=== PATIENT | male | born 1955 | race Hispanic/Latino ===

== ENCOUNTER 2018-09-13 21:24 | Emergency (ER) | payer MEDICARE, OTHER ==
[2018-09-13 21:52] LABS: APPEARANCE,URINE Clear (CLEAR); BILIRUBIN,URINE Negative (NEGATIVE); COLOR,URINE Yellow (YELLOW); GLUCOSE, URINE (UA) Negative (NEGATIVE); KETONES,URINE Trace mg/dL (NEGATIVE); LEUKOCYTE ESTERASE ,URINE Negative (NEGATIVE); NITRATE,URINE Negative (NEGATIVE); OCCULT BLOOD,URINE Small (NEGATIVE); PROTEIN,URINE Trace (NEGATIVE)
[2018-09-13] MEDS ORDERED: SODIUM CHLORIDE 0.9% 1000ML 1,000 ML IV ONE ×2 (22:05→23:30)
[2018-09-13] MEDS ORDERED: KETOROLAC TROMETHAMINE 30MG/ML IV ONE (22:06)
[2018-09-13 22:09] LABS: BASOPHILS % (AUTO) 0.3 % (0.0-5.0); EOSINOPHILS % (AUTO) 0.2 % (0.0-8.0); HEMATOCRIT 41.6 % (42-54); LYMPHOCYTES % (AUTO) 9.5 % (21.0-51.0); MEAN CORPUSCULAR HEMOGLOBIN 33.9 pg (27.0-33.0); MEAN CORPUSCULAR HGB CONC 34.9 g/dL (32.0-36.0); MEAN CORPUSCULAR VOLUME 97.2 fL (79-99); MONOCYTES % (AUTO) 13.2 % (3.0-13.0); NEUTROPHILS % (AUTO) 76.8 % (40.0-77.0); PLATELET COUNT (AUTO) 193 K/uL (130-400); RED BLOOD CELL COUNT(AUTO) 4.28 MIL/uL (4.50-6.20); RED CELL DISTRIBUTION WIDTH 12.9 % (11.0-15.5); WHITE BLOOD COUNT (AUTO) 7.9 K/uL (4.8-10.8)
[2018-09-13 22:16] LABS: CARBON DIOXIDE 29 mmol/L (21-32); CHLORIDE 100 mmol/L (101-111); CREATININE 0.9 mg/dL (0.5-1.5); GLOMERULAR FILTR. RATE CALC 90 mL/min (>60); GLUCOSE,RANDOM 115 mg/dL (70-105); POTASSIUM 3.6 mmol/L (3.5-5.1); SODIUM SERUM 138 mmol/L (136-145); UREA NITROGEN, BLOOD 6 mg/dL (7-18)
[2018-09-13 22:17] LABS: RAPID GROUP A STREP NEGATIVE (NEGATIVE)
[2018-09-13 22:21] LABS: BACTERIA,URINE None Seen /HPF (None Seen); MUCUS,URINE Few LPF (None Seen); RBC,URINE 0-1 /HPF (0-1); SQUAMOUS EPITHELIAL CELL,UR Rare /HPF (0-2); WBC,URINE None Seen /HPF (0-1)
[2018-09-13 22:22] LABS: INR 0.99 (0.85-1.15); PARTIAL THROMBOPLASTIN TIME 28.7 SEC (26.3-35.5); PROTHROMBIN TIME 10.4 SEC (9.6-11.6)
[2018-09-13] MEDS ORDERED: IOHEXOL-350 75 ML VIAL IV ONE (22:26)
[2018-09-13 22:27] LABS: ALANINE AMINOTRANSFERASE 30 U/L (12-78); ALBUMIN 3.4 g/dL (3.5-5.0); ASPARTATE AMINOTRANSFERASE 28 U/L (10-37); BILIRUBIN,TOTAL 0.4 mg/dL (0.2-1.0); CREATINE KINASE, TOTAL 95 U/L (21-232); MYOGLOBIN 23 ng/mL (10-92); TOTAL PROTEIN, SERUM 8.2 g/dL (6.0-8.3); TROPONIN I < 0.04 ng/mL (0.00-0.06)
[2018-09-13] MEDS ORDERED: ACETAMINOPHEN EXTRA STRENGTH 500 MG TABLET PO ONE (22:44)
== END 2018-09-14 00:45 | disposition home or self-care (01) ==
LOC: EDH 21:24
DX: J10.1 Influenza due to other identified influenza virus with other respiratory manifestations (principal); E86.9 Volume depletion, unspecified; M25.512 Pain in left shoulder; M25.511 Pain in right shoulder
CPT/HCPCS: 36415; 71045; 74177; 80053; 81001; 82550; 83605; 83874; 84484; 85025; 85610; 85730; 87040 ×2; 87088; 87804 ×2; 87880; 93005; 96361; 96374; 99284; J1885; J7030 ×2; Q9967

== ENCOUNTER 2018-09-15 16:16 | Inpatient (IN) | payer MEDICARE, OTHER ==
[~2018-09-15] VITALS: Ht 162.6 cm; Wt 112.8 kg
[2018-09-15] MEDS ORDERED: SODIUM CHLORIDE 0.9% 1000ML 3,000 ML IV ONE (16:38)
[2018-09-15] MEDS ORDERED: ACETAMINOPHEN EXTRA STRENGTH 500 MG TABLET ONE ×2 (16:38→19:57)
[2018-09-15 16:42] LABS: BASOPHILS % (AUTO) 0.2 % (0.0-5.0); HEMATOCRIT 38.8 % (42-54); LYMPHOCYTES % (AUTO) 3.3 % (21.0-51.0); MEAN CORPUSCULAR HEMOGLOBIN 33.8 pg (27.0-33.0); MEAN CORPUSCULAR HGB CONC 34.9 g/dL (32.0-36.0); MEAN CORPUSCULAR VOLUME 96.9 fL (79-99); MONOCYTES % (AUTO) 7.6 % (3.0-13.0); NEUTROPHILS % (AUTO) 88.9 % (40.0-77.0); PLATELET COUNT (AUTO) 176 K/uL (130-400); RED CELL DISTRIBUTION WIDTH 13.1 % (11.0-15.5); WHITE BLOOD COUNT (AUTO) 16.7 K/uL (4.8-10.8)
[2018-09-15 16:59] LABS: INR 1.08 (0.85-1.15); PARTIAL THROMBOPLASTIN TIME 32.2 SEC (26.3-35.5); PROTHROMBIN TIME 11.3 SEC (9.6-11.6)
[2018-09-15 17:26] LABS: ALBUMIN 2.7 g/dL (3.5-5.0); BILIRUBIN,TOTAL 0.7 mg/dL (0.2-1.0); CREATININE 1.2 mg/dL (0.5-1.5); TOTAL PROTEIN, SERUM 7.4 g/dL (6.0-8.3); TROPONIN I 0.11 ng/mL (0.00-0.06)
[2018-09-15 17:31] LABS: POTASSIUM 3.3 mmol/L (3.5-5.1)
[2018-09-15 19:01] LABS: APPEARANCE,URINE Cloudy (CLEAR); BILIRUBIN,URINE Small (NEGATIVE); COLOR,URINE Dark Yellow (YELLOW); GLUCOSE, URINE (UA) Negative (NEGATIVE); KETONES,URINE Trace mg/dL (NEGATIVE); LEUKOCYTE ESTERASE ,URINE Negative (NEGATIVE); NITRATE,URINE Negative (NEGATIVE); OCCULT BLOOD,URINE Small (NEGATIVE); PH,URINE 5.5 (5.0-8.0); PROTEIN,URINE POS 2+ (NEGATIVE)
[2018-09-15] MEDS ORDERED: VANCOMYCIN 1GM+NS 250ML 250 ML IV SCH (19:15)
[2018-09-15] MEDS ORDERED: MORPHINE SULFATE 4 MG/1ML SYG IV PRN (19:15)
[2018-09-15 19:24] LABS: BACTERIA,URINE Few /HPF (None Seen); RBC,URINE None Seen /HPF (0-1); SQUAMOUS EPITHELIAL CELL,UR 0-2 /HPF (0-2)
[2018-09-15 19:25] LABS: AMORPHOUS SEDIMENT,UR Few /LPF (None Seen); MUCUS,URINE Few LPF (None Seen)
[2018-09-15] MEDS ORDERED: VANCOMYCIN PROTOCOL PER PHARMACY IV SCH (19:30)
[2018-09-15] MEDS ORDERED: VANCOMYCIN 1GM+NS 250ML 250 ML IV ONE (21:05)
[2018-09-15] MEDS: FAMOTIDINE/PF 20 MG/2 ML VIAL IV SCH (21:33)
[2018-09-15] MEDS: ENOXAPARIN SODIUM 40 MG/0.4 ML SYRINGE SQ SCH (21:33)
[2018-09-15] MEDS: ZOSYN 3.375GM+NS 50ML 50 ML IV SCH (21:33)
[2018-09-15] MEDS: SODIUM CHLORIDE 0.9% 1000ML 1,000 ML IV SCH (21:34)
[2018-09-15 21:53] VITALS: BP 132/66
[2018-09-15] MEDS ORDERED: LIDOCAINE HCL-MPF 1% 2ML VIAL IVP PRN (23:15)
[2018-09-15] MEDS ORDERED: POTASSIUM CHLORIDE 10% ELIXIR 20 MEQ/15 ML UDCUP PO PRN (23:15)
[2018-09-15] MEDS ORDERED: POTASSIUM CHLORIDE 20MEQ/100ML 100 ML IV PRN (23:15)
[2018-09-16] VITALS (17 sets, daily range): BP systolic 118–165; BP diastolic 50–92
[2018-09-16] MEDS: POTASSIUM CHLORIDE 20 MEQ ERTAB PO PRN ×2 (00:05→02:06)
[2018-09-16] MEDS: SODIUM CHLORIDE 0.9% 1000ML 1,000 ML IV SCH (01:57)
[2018-09-16] MEDS: ZOSYN 3.375GM+NS 50ML 50 ML IV SCH ×3 (04:14→20:38)
[2018-09-16] MEDS: ACETAMINOPHEN 325 MG TAB PO PRN (06:05)
[2018-09-16] MEDS ORDERED: COMPOUND IV REFRIGERATED 1 EACH IVSOLN MISC PRN (06:30)
[2018-09-16 06:52] LABS: CREATINE KINASE, TOTAL 136 U/L (21-232); MYOGLOBIN 89 ng/mL (10-92); TROPONIN I < 0.04 ng/mL (0.00-0.06)
[2018-09-16] MEDS: FAMOTIDINE/PF 20 MG/2 ML VIAL IV SCH ×2 (09:05→20:38)
[2018-09-16] MEDS: ENOXAPARIN SODIUM 40 MG/0.4 ML SYRINGE SQ SCH ×2 (09:08→20:40)
[2018-09-16] MEDS: VANCOMYCIN 1.5 GM in SODIUM CHLORIDE 0.9% 250 ML IV SCH ×2 (09:08→20:38)
--- NOTE | 2018-09-16 10:32 | NUR ---
DCP CM met with pt discussed dc plans. Pt is independent, lives at home with spuse. Denies any equipments/services. Pt feels safe to go back home, sees Dr Rashaun Barroso at [facility], still works and drives, friend able to assist with transportation as necessary. DC plan to home once stable. CM to cont to follow up. Addendum: 09/16/18 at 1033 by SANDRITA JOVEL LVN CM Amended: Links added.
--- NOTE | 2018-09-16 12:20 | NUR ---
DR. SHAY HERE AND REVIEW CARE, WITH PT. AND . REGARDING PLAN OF CARE AND LABS VALUES . AND ASSESSMENT. REVIEW HISTORY. WITH ORDERS TO FOLLOW
[2018-09-16] MEDS ORDERED: SODIUM CHLORIDE 0.9% 1000ML 1,000 ML IV SCH (12:21)
--- NOTE | 2018-09-16 12:44 | NUR ---
ONE LITER OF SALINE UP AT A WIDTH OPEN RATE FOR A BOLUS PER . ORDERS CHARGE NURSE ANDRES . PHILL. AWARE OF PT . ORDERS TO TRANSFER TO 2ND FLOOR PCCU FOR CLOSER MONITORING. PT IS ALREADY IN A TELE MONITOR .WITH HEART RATE UP TO THE 120'S .
[2018-09-16 13:18] LABS: HEMATOCRIT 35.1 % (42-54); MEAN CORPUSCULAR HEMOGLOBIN 33.2 pg (27.0-33.0); MEAN CORPUSCULAR HGB CONC 34.1 g/dL (32.0-36.0); MEAN CORPUSCULAR VOLUME 97.4 fL (79-99); NUCLEATED RED BLOOD CELLS 0.1 % (0.0-0.19); PLATELET COUNT (AUTO) 166 K/uL (130-400); RED CELL DISTRIBUTION WIDTH 12.9 % (11.0-15.5); WHITE BLOOD COUNT (AUTO) 19.1 K/uL (4.8-10.8)
[2018-09-16 13:40] LABS: B-TYPE NATRIURETIC PEPTIDE 145 pg/mL (0-100)
[2018-09-16 13:50] LABS: CREATININE 1.1 mg/dL (0.5-1.5); MAGNESIUM 1.5 mg/dL (1.80-2.40); PHOSPHORUS 1.3 mg/dL (2.5-4.9); POTASSIUM 3.6 mmol/L (3.5-5.1); TROPONIN I 0.06 ng/mL (0.00-0.06)
[2018-09-16 13:56] LABS: HEMOGLOBIN A1C 5.6 % (4.0-6.0)
[2018-09-16] MEDS: CLINDAMYCIN 900 MG/D5% WATER 50 ML IV SCH ×2 (14:00→20:38)
[2018-09-16] MEDS ORDERED: POTASSIUM PHOS 15 mMOL+NS250ML 250 ML IV SCH ×2 (14:15→16:00)
[2018-09-16] MEDS ORDERED: MAGNESIUM 2GM PREMIX 50ML 50 ML IV SCH (14:15)
[2018-09-16 14:20] LABS: HEMATOCRIT 36.9 % (42-54); LYMPHOCYTES % (AUTO) 2.7 % (21.0-51.0); MEAN CORPUSCULAR HEMOGLOBIN 33.3 pg (27.0-33.0); MEAN CORPUSCULAR HGB CONC 33.8 g/dL (32.0-36.0); MEAN CORPUSCULAR VOLUME 98.3 fL (79-99); MONOCYTES % (AUTO) 4.2 % (3.0-13.0); NEUTROPHILS % (AUTO) 93.1 % (40.0-77.0); PLATELET COUNT (AUTO) 179 K/uL (130-400); RED BLOOD CELL COUNT(AUTO) 3.75 MIL/uL (4.50-6.20); RED CELL DISTRIBUTION WIDTH 12.9 % (11.0-15.5); WHITE BLOOD COUNT (AUTO) 21.6 K/uL (4.8-10.8)
[2018-09-16 14:29] LABS: CREATININE 1.1 mg/dL (0.5-1.5); POTASSIUM 3.6 mmol/L (3.5-5.1)
[2018-09-16 14:34] LABS: ALBUMIN 2.2 g/dL (3.5-5.0); BILIRUBIN,TOTAL 0.5 mg/dL (0.2-1.0); TOTAL PROTEIN, SERUM 6.7 g/dL (6.0-8.3)
--- NOTE | 2018-09-16 15:15 | NUR ---
REPORT CALLED TO ICU NURSE . DEREK MOREIRA RN .REGARDING CONT . CARE UPDATE LACTIC ACID RESULT CALLED TO ME AND IT WAS A 2.6 ALREADY GAVE A ONE LITER BOLUS OF NORMAL SALINE, Addendum: 09/16/18 at 1633 by DEREK MAHARAJ RN RN NOTED ADDENDUM. CORRECTION ON A LACTIC ACID 2.5 NOT A 2.6 PER GIVEN IN REPORT.
--- NOTE | 2018-09-16 15:35 | NUR ---
TO ROOM [address] DE LA CRUZ ORDS .. EXPLAIN TO PT REGARDING TRANSFER CARE.
--- NOTE | 2018-09-16 15:36 | NUR ---
CORRECTION OF A LACTIC ACID LAB VALUE IS A 2.5 RESULTS. NOT A 2.6 RESULTS
[2018-09-16 15:41] LABS: CRP QUANTITATIVE 335.4 mg/L (0.00-9.0)
[2018-09-16] MEDS ORDERED: DILTIAZEM HCL 5 MG/ML 5 ML VIAL IVP SCH (15:45)
[2018-09-16] MEDS ORDERED: DILTIAZEM 125MG+100 ML NS 125 ML IV SCH (15:45)
--- NOTE | 2018-09-16 16:00 | NUR ---
PT WAS ADMITTED AND PLACED ON TREE KILLER AND HAS SINUS TACH SHOWING TO MONITOR. PT WAS CONNECTED TO IV MEDS ORDERED ON 3RD FLOOR PER DR. DE LA CRUZ. PT WAS ASSESSED AND NOTED TO HAVE WHEEZING AND HAVE EXPLAINED ALL PROCEDURES AND MEDS TO PT PRIOR TO RENDERING.
[2018-09-16] MEDS: METHYLPREDNISOLONE SOD SUCC 40MG/ML 1ML IVP SCH ×2 (16:29→22:25)
[2018-09-16 16:40] LABS: ABG BASE EXCESS -1.6 mmol/L (-2.0-3.0); ABG HCO3 19.8 mmol/L (21.0-28.0); ABG OXYGEN SATURATION 96.3 % (95.0-99.0); ABG PCO2 26 mmHg (35-48)
--- NOTE | 2018-09-16 17:50 | NUR ---
JERROD HERE TO PICC LINE PLACEMENT. WILL ADVISE DR. DE LA CRUZ OF PLACEMENT AND IF LINE CAN BE USED.
[2018-09-16] MEDS ORDERED: PHENYLEPHRINE HCL 50 MG in SODIUM CHLORIDE 0.9% 250 ML IV SCH (18:30)
[2018-09-16] MEDS: IPRATROPIUM 0.5 MG/2.5 ML INH IH SCH ×2 (19:03→23:15)
--- NOTE | 2018-09-16 19:31 | NUR ---
ASSESSMENT: REPORT RECEIVED FROM DEREK OROZCO RN. 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 CALL AVILA IN REACH.
[2018-09-16] MEDS: NS-20 MEQ KCL 1000ML 1,000 ML IV SCH (19:47)
[2018-09-16] MEDS ORDERED: METOPROLOL TARTRATE 25 MG TAB PO SCH (21:00)
[2018-09-16] MEDS: OSELTAMIVIR PHOSPHATE 75 MG CAP PO SCH (22:25)
[2018-09-17] VITALS (31 sets, daily range): BP systolic 99–144; BP diastolic 37–90
--- NOTE | 2018-09-17 00:47 | NUR ---
PATIENT REFUSING BIPAP-REMOVED BY RT AT THIS TIME.
[2018-09-17] MEDS: NS-20 MEQ KCL 1000ML 1,000 ML IV SCH ×3 (00:48→20:53)
[2018-09-17] MEDS: CLINDAMYCIN 900 MG/D5% WATER 50 ML IV SCH ×4 (01:55→20:07)
--- NOTE | 2018-09-17 02:55 | NUR ---
PT PLACED BACK ON BIPAP BY RT
[2018-09-17] MEDS: ACETAMINOPHEN 325 MG TAB PO PRN ×3 (02:59→12:45)
[2018-09-17 03:59] LABS: MEAN CORPUSCULAR HEMOGLOBIN 33.3 pg (27.0-33.0); MEAN CORPUSCULAR HGB CONC 34.2 g/dL (32.0-36.0); MEAN CORPUSCULAR VOLUME 97.4 fL (79-99); PLATELET COUNT (AUTO) 152 K/uL (130-400); RED BLOOD CELL COUNT(AUTO) 3.59 MIL/uL (4.50-6.20); RED CELL DISTRIBUTION WIDTH 13.2 % (11.0-15.5)
[2018-09-17 04:12] LABS: INR 0.99 (0.85-1.15); PARTIAL THROMBOPLASTIN TIME 40.6 SEC (26.3-35.5); PROTHROMBIN TIME 10.4 SEC (9.6-11.6)
[2018-09-17 04:25] LABS: ALANINE AMINOTRANSFERASE 15 U/L (12-78); ASPARTATE AMINOTRANSFERASE 27 U/L (10-37); B-TYPE NATRIURETIC PEPTIDE 149 pg/mL (0-100); BILIRUBIN,TOTAL 0.4 mg/dL (0.2-1.0); CARBON DIOXIDE 24 mmol/L (21-32); CHLORIDE 102 mmol/L (101-111); CREATINE KINASE, TOTAL 143 U/L (21-232); GLOMERULAR FILTR. RATE CALC 80 mL/min (>60); GLUCOSE,RANDOM 158 mg/dL (70-105); MYOGLOBIN 69 ng/mL (10-92); PHOSPHORUS 2.2 mg/dL (2.5-4.9); POTASSIUM 3.6 mmol/L (3.5-5.1); SODIUM SERUM 134 mmol/L (136-145); THYROID STIMULATING HORMONE 0.18 uIU/mL (0.36-3.74); TOTAL PROTEIN, SERUM 6.7 g/dL (6.0-8.3); TROPONIN I < 0.04 ng/mL (0.00-0.06); UREA NITROGEN, BLOOD 13 mg/dL (7-18)
[2018-09-17 04:53] LABS: ABG BASE EXCESS -1.3 mmol/L (-2.0-3.0); ABG HCO3 22.1 mmol/L (21.0-28.0); ABG PCO2 34 mmHg (35-48)
[2018-09-17] MEDS: ZOSYN 3.375GM+NS 50ML 50 ML IV SCH ×3 (04:58→20:50)
[2018-09-17 04:59] LABS: ERYTHROCYTE SEDIMENTATION RATE 125 MM/HR (0-20)
--- NOTE | 2018-09-17 05:57 | NUR ---
PATIENT DIAPHORETIC, COMPLETE BATH GIVEN , LINENS CHANGED, O2 3L NC .PT REPOSITIONED SELF IN BED. R LEG ELEVATED ON PILLOW.CALL AVILA IN REACH.
--- NOTE | 2018-09-17 06:00 | NUR ---
HR 84 CARDIZEM TURNED OFF AT THIS TIME. WILL OBSERVE.
[2018-09-17] MEDS: POTASSIUM CHLORIDE 20 MEQ ERTAB PO PRN ×3 (06:15→11:11)
[2018-09-17] MEDS: METHYLPREDNISOLONE SOD SUCC 40MG/ML 1ML IVP SCH ×3 (06:15→22:08)
--- NOTE | 2018-09-17 06:21 | NUR ---
PT RESTING COMFORTABLY WATCHING TV , HR 89, RESP 28, COARSE CRACKLES TO LUNG BASES, DIMINISHED TO UPPER BASES, O2 3L NC SATURATION 98%, BP 129/76. Addendum: 09/17/18 at 0623 by ED SCOTT RN RN SHOULD READ DIMINISHED TO UPPER LOBES.
[2018-09-17] MEDS: IPRATROPIUM 0.5 MG/2.5 ML INH IH SCH ×4 (07:26→23:24)
--- NOTE | 2018-09-17 07:30 | NUR ---
DR SHAY HERE TO SEE PT UPDATED. HE SPOKE TO PATIENT IN DETAIL REGARDING STATUS AND PLAN OF CARE.
[2018-09-17] MEDS: ENOXAPARIN SODIUM 40 MG/0.4 ML SYRINGE SQ SCH (08:41)
[2018-09-17] MEDS: NEUTRA-PHOS PACKET 1 EACH PO SCH ×4 (08:41→20:53)
[2018-09-17] MEDS: FAMOTIDINE/PF 20 MG/2 ML VIAL IV SCH ×2 (08:43→20:50)
[2018-09-17] MEDS: OSELTAMIVIR PHOSPHATE 75 MG CAP PO SCH ×2 (08:43→20:51)
[2018-09-17] MEDS: VANCOMYCIN 1.5 GM in SODIUM CHLORIDE 0.9% 250 ML IV SCH (09:42)
--- NOTE | 2018-09-17 11:00 | NUR ---
INTERMITTENT USE OF BIPAP FOR SHORTNESS OF BREATH. TOLERATED OUT OF BED TO CHAIR WITH STEADY STANCE.
--- NOTE | 2018-09-17 12:11 | NUR ---
DR DE LA CRUZ HERE TO SEE PT UPDATED. ORDERS RECEIVED AND CARRIED OUT. CARDIOLOGY CONSULTED.
[2018-09-17] MEDS ORDERED: POTASSIUM PHOS 15 mMOL+NS250ML 250 ML IV SCH (12:15)
--- NOTE | 2018-09-17 15:00 | NUR ---
Tip MACARIO. FOR DR Mia RUBY HERE FOR CARDIOLOGY CONSULT CURRENTLY PATIENT IN SINUS RHYTHM. NO ORDERS RECEIVED. NURSE TO CALL DR Mia RUBY IF ANY RHYTHM CHANGES ARE NOTED.
--- NOTE | 2018-09-17 15:49 | NUR ---
BEDSIDE COMMODE. OUT OF CHAIR TO BEDSIDE COMMODE. GENERALIZED WEAKNESS NOTED. BM X1 BROWN, SOFT, MIXED WITH URINE APPROXIMATELY 500ML. BACK TO BEDSIDE CHAIR. SOB NOTED WITH EXERTION. ENCOURAGED COUGH AND DEEP BREATHING. NO EXPECTORATION NOTED.
--- NOTE | 2018-09-17 19:15 | NUR ---
ASSESSMENT: REPORT RECEIVED FROM DOLORES POLLOCK. 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 ABDOMEN LARGE BOWEL SOUNDS ACTIVE,PATIENT SEATED COMFORTABLY IN RECLINER CHAIR WATCHING TV. RESPIRATORY RATE 27, SOB ON EXERTION, , RLE WITH REDNESS MARKED IN INK ELEVATED , PEDAL PULSES PALPABLE.ASSESSMENT COMPLETED. SR SR 90, O2 SATURATION 100 % ON 3L NC. VOIDED 200 ML LIGHT EDWARD URINE PER URINAL. CALL AVILA IN REACH.
[2018-09-17] MEDS: VANCOMYCIN 1.75 GM in SODIUM CHLORIDE 0.9% 250 ML IV SCH (22:33)
[2018-09-18] VITALS (22 sets, daily range): BP systolic 111–160; BP diastolic 58–105
[2018-09-18] MEDS: CLINDAMYCIN 900 MG/D5% WATER 50 ML IV SCH ×3 (01:31→13:28)
[2018-09-18] MEDS: ZOSYN 3.375GM+NS 50ML 50 ML IV SCH ×3 (04:34→21:20)
[2018-09-18] MEDS: IPRATROPIUM 0.5 MG/2.5 ML INH IH SCH ×3 (06:14→18:53)
[2018-09-18] MEDS: NS-20 MEQ KCL 1000ML 1,000 ML IV SCH ×2 (06:15→17:25)
[2018-09-18] MEDS: METHYLPREDNISOLONE SOD SUCC 40MG/ML 1ML IVP SCH ×3 (06:37→21:18)
[2018-09-18 06:42] LABS: CARBON DIOXIDE 23 mmol/L (21-32); CHLORIDE 104 mmol/L (101-111); CREATININE 0.9 mg/dL (0.5-1.5); GLOMERULAR FILTR. RATE CALC 90 mL/min (>60); GLUCOSE,RANDOM 152 mg/dL (70-105); PHOSPHORUS 1.3 mg/dL (2.5-4.9); POTASSIUM 3.8 mmol/L (3.5-5.1); SODIUM SERUM 138 mmol/L (136-145); UREA NITROGEN, BLOOD 19 mg/dL (7-18)
[2018-09-18 06:43] LABS: CRP QUANTITATIVE < 2.00 mg/L (0.00-9.0)
[2018-09-18 07:13] LABS: HEMATOCRIT 34.3 % (42-54); MEAN CORPUSCULAR HEMOGLOBIN 32.6 pg (27.0-33.0); MEAN CORPUSCULAR HGB CONC 33.2 g/dL (32.0-36.0); MEAN CORPUSCULAR VOLUME 98.2 fL (79-99); PLATELET COUNT (AUTO) 148 K/uL (130-400); RED BLOOD CELL COUNT(AUTO) 3.49 MIL/uL (4.50-6.20); RED CELL DISTRIBUTION WIDTH 13.4 % (11.0-15.5); WHITE BLOOD COUNT (AUTO) 17.3 K/uL (4.8-10.8)
--- NOTE | 2018-09-18 07:50 | NUR ---
ASSESSMENT Repositioned for comfort in bed. Pt noticeably SOB with repositioning - comfortable with HOB at approximately 15-degrees. SR on tele. Fair apical heart tones. Denies chest pain or pressure. On NC O2. Skin is warm, dry. PICC line to LUE in place - white port with sluggish blood return and slow flushing. Brisk blood return/flushing of other ports. Pt denies pain to site. Site appears healthy. Abd obese - distended. Denies nausea. Voids per urinal. Edema/erythema to right lower leg. Pedal pulses palpable bilaterally. Per pt, swelling of RLE is decreased. No acute pain to RLE. Denies numbness or tingling to RLE. Assessment completed. Needed items within reach. Offered to assist with AM meal - pt declined. Instructed to call for assistance as needed - voiced understanding.
[2018-09-18 08:11] LABS: ERYTHROCYTE SEDIMENTATION RATE 130 MM/HR (0-20)
--- NOTE | 2018-09-18 08:35 | NUR ---
VISITOR UPDATE Confrontational encounter with pt's significant other, Ms.Elida Mills. voiced multiple concerns/complaints regarding many aspects of pt's hospitalization. Initial conversation addressed ICU visitation policy - conversation digressed and then voiced many other complaints. ICU director at bedside along with this caregiver and addressed concerns. Of note, pt offered no input during conversation. No complaints were voiced by pt at time of 's visit.
[2018-09-18] MEDS: FAMOTIDINE/PF 20 MG/2 ML VIAL IV SCH ×2 (08:45→21:18)
[2018-09-18] MEDS: OSELTAMIVIR PHOSPHATE 75 MG CAP PO SCH ×2 (08:46→21:18)
[2018-09-18] MEDS: NEUTRA-PHOS PACKET 1 EACH PO SCH ×4 (08:46→21:18)
[2018-09-18] MEDS: ENOXAPARIN SODIUM 40 MG/0.4 ML SYRINGE SQ SCH (08:46)
[2018-09-18] MEDS: VANCOMYCIN 1.75 GM in SODIUM CHLORIDE 0.9% 250 ML IV SCH ×3 (10:20→21:19)
--- NOTE | 2018-09-18 11:30 | NUR ---
ASSESSMENT No acute changes in overall assessment. Denies pain. SOB with minimal exertion - no acute distress. Repositions self in bed. Needed items within reach.
--- NOTE | 2018-09-18 16:45 | NUR ---
ASSESSMENT Resting quietly - sitting at edge of bed. No evidence of distress. SR on tele. Needed items within reach. Instructed to call for assistance.
--- NOTE | 2018-09-18 18:29 | NUR ---
KRYSTLE DISCUSSION Spoke with both and about proceeding with conversation regarding designation of medical power of employee benefits attorney of pt's choosing. Advised both that this could be fully addressed in AM after 's arrival - both advised that social studies teacher will be able to assist in the process. Both voiced understanding. Questions addressed. Pt resting comfortably. No complaints or concerns voiced by either.
--- NOTE | 2018-09-18 19:30 | NUR ---
ASSESSMENT NOTE AAOX3 LYING IN BED BREATHING REGULAR AND TACHYPNEIC ON NASAL CANNULA. SOME SHORTNESS OF BREATH NOTED WITH CONVERSATION AND REPOSITIONING. ASSESSMENT COMPLETED. BOB PICC LINE IN PLACE, FLUSHED. DENIES PAIN. PLAN OF CARE DISCUSSED WITH PATIENT. PATIENT DOES NOT HAVE INTEREST. DENIES ACUTE PAIN. RIGHT LOWER EXTREMITY SHINY AND TAUT WITH DIMPLING. VOICES IMPROVEMENT TO RIGHT LOWER EXTREMITY DESCRIBING PREVIOUS STATE. ITEMS PLACED IN REACH OF PATIENT. NO ACUTE SIGNS OR SYMPTOMS OF DISTRESS NOTED. CALL LIGHT IN REACH.
[2018-09-19] VITALS (20 sets, daily range): BP systolic 82–174; BP diastolic 36–108
[2018-09-19] MEDS: IPRATROPIUM 0.5 MG/2.5 ML INH IH SCH ×5 (00:21→23:39)
[2018-09-19] MEDS: NS-20 MEQ KCL 1000ML 1,000 ML IV SCH (04:06)
[2018-09-19] MEDS: ZOSYN 3.375GM+NS 50ML 50 ML IV SCH ×3 (04:33→20:20)
[2018-09-19 04:41] LABS: HEMATOCRIT 34.7 % (42-54); MEAN CORPUSCULAR HEMOGLOBIN 33.2 pg (27.0-33.0); MEAN CORPUSCULAR HGB CONC 33.9 g/dL (32.0-36.0); NUCLEATED RED BLOOD CELLS 0.1 % (0.0-0.19); PLATELET COUNT (AUTO) 183 K/uL (130-400); RED BLOOD CELL COUNT(AUTO) 3.54 MIL/uL (4.50-6.20); RED CELL DISTRIBUTION WIDTH 13.6 % (11.0-15.5); WHITE BLOOD COUNT (AUTO) 13.7 K/uL (4.8-10.8)
[2018-09-19 05:02] LABS: INR 1.02 (0.85-1.15); PARTIAL THROMBOPLASTIN TIME 32.2 SEC (26.3-35.5); PROTHROMBIN TIME 10.7 SEC (9.6-11.6)
[2018-09-19] MEDS: METHYLPREDNISOLONE SOD SUCC 40MG/ML 1ML IVP SCH ×3 (05:16→21:47)
[2018-09-19 05:20] LABS: ALANINE AMINOTRANSFERASE 76 U/L (12-78); ALBUMIN 1.7 g/dL (3.5-5.0); ASPARTATE AMINOTRANSFERASE 92 U/L (10-37); BILIRUBIN,TOTAL 0.4 mg/dL (0.2-1.0); CARBON DIOXIDE 23 mmol/L (21-32); CHLORIDE 107 mmol/L (101-111); CREATINE KINASE, TOTAL 63 U/L (21-232); CREATININE 0.7 mg/dL (0.5-1.5); GLOMERULAR FILTR. RATE CALC 121 mL/min (>60); GLUCOSE,RANDOM 141 mg/dL (70-105); MYOGLOBIN 54 ng/mL (10-92); PHOSPHORUS 1.9 mg/dL (2.5-4.9); POTASSIUM 4.7 mmol/L (3.5-5.1); SODIUM SERUM 139 mmol/L (136-145); TOTAL PROTEIN, SERUM 6.2 g/dL (6.0-8.3); TROPONIN I < 0.04 ng/mL (0.00-0.06); UREA NITROGEN, BLOOD 17 mg/dL (7-18)
[2018-09-19] MEDS: OSELTAMIVIR PHOSPHATE 75 MG CAP PO SCH ×2 (08:17→21:47)
[2018-09-19] MEDS: METOPROLOL TARTRATE 25 MG TAB PO SCH ×2 (08:17→21:47)
[2018-09-19] MEDS: ENOXAPARIN SODIUM 40 MG/0.4 ML SYRINGE SQ SCH (08:18)
[2018-09-19] MEDS: NEUTRA-PHOS PACKET 1 EACH PO SCH ×4 (08:18→21:47)
[2018-09-19] MEDS: VANCOMYCIN 1.75 GM in SODIUM CHLORIDE 0.9% 250 ML IV SCH ×2 (08:19→20:20)
[2018-09-19] MEDS ORDERED: MAGNESIUM OXIDE 400 MG TABLET PO SCH (09:00)
[2018-09-19] MEDS ORDERED: FUROSEMIDE 10 MG/ML 4ML VIAL IV SCH (11:30)
--- NOTE | 2018-09-19 11:30 | NUR ---
MPOA/ DIRECTIVES Sw met with pt and friend Vivian Mills [phone]. Pt states he never and has no kids. Pt has only siblings in [place]. Friend states that pt lives with her and her daughter Cassandra Esparza. SW educated pt and friend on the Release of Information vs MPOA. Informed pt and friend that MPOA does not go into effect until MD documents that pt is unable to make medical decisions. So if pt is wanting friend to get information on his condition, they need a SHILPA. Pt was agreeable to completing MPOA, Directives and SHILPA. Forms were signed and witnessed. Friend given original and copy placed in chart. Sw also assisted friend with completing her MPOA and Directive. Friend given her original. Friend asked for letter for pt's sister to cross to see him. Sw referred friend to PCP for letter. Nurse and Polina, ICU director informed
[2018-09-19] MEDS ORDERED: HYDROMORPHONE HCL 0.5 MG/0.5 ML ML IVP PRN (13:30)
--- NOTE | 2018-09-19 14:49 | NUR ---
RD notification for protein-francesca malnutrition Patient with Heart Healthy diet and poor PO intake. Patient states he drank coffee at breakfast and sometimes brings food from outside, however patient with severely low albumin levels;Rec to add 30mL ProMod TID. Patient agrees to Ensure QD for supplemental nutrition intake. Patient reports no GI distress. LBM 09/19/18. Patient with cellulitis;Rec Zn + vitamin C for wound healing support. Patient monitored labs: Glu 141, Ca 7.7, Glu 141, P 1.9, Alb 1.7. RD to continue to monitor nutritional labs and PO intake. Please notify RD as nutritional concerns arise. Addendum: 09/19/18 at [address] Amended: Links added.
[2018-09-19] MEDS ORDERED: POTASSIUM PHOS 15 mMOL+NS250ML 250 ML IV SCH (17:30)
[2018-09-19] MEDS: ONDANSETRON HCL 4 MG/2 ML VIAL IV PRN ×2 (20:20→23:26)
--- NOTE | 2018-09-19 22:00 | NUR ---
200ML EMESIS DONE OF THIN BROWN FLUID. ORAL CARE RENDERED.
--- NOTE | 2018-09-19 23:30 | NUR ---
ANOTHER 200ML EMESIS OF THIN BROWN FLUID DONE. INSTRUCTED PT TO REMAIN NPO; WATER AND OTHER BEVERAGES REMOVED FROM BS TABLE. ZOFRAN PRN GIVEN. ORAL CARE RENDERED.
--- NOTE | 2018-09-20 03:00 | NUR ---
SMALL EMESIS DONE. ORAL CARE PROVIDED.
[2018-09-20 03:38] LABS: HEMATOCRIT 36.8 % (42-54); MEAN CORPUSCULAR HEMOGLOBIN 33.2 pg (27.0-33.0); MEAN CORPUSCULAR HGB CONC 34.2 g/dL (32.0-36.0); MEAN CORPUSCULAR VOLUME 97.1 fL (79-99); PLATELET COUNT (AUTO) 253 K/uL (130-400); RED BLOOD CELL COUNT(AUTO) 3.79 MIL/uL (4.50-6.20); RED CELL DISTRIBUTION WIDTH 13.5 % (11.0-15.5); WHITE BLOOD COUNT (AUTO) 12.8 K/uL (4.8-10.8)
[2018-09-20 03:58] LABS: BILIRUBIN,TOTAL 0.7 mg/dL (0.2-1.0); CREATININE 0.8 mg/dL (0.5-1.5); CRP QUANTITATIVE 66.9 mg/L (0.00-9.0); MAGNESIUM 2.5 mg/dL (1.80-2.40); PHOSPHORUS 2.4 mg/dL (2.5-4.9); POTASSIUM 3.5 mmol/L (3.5-5.1); TOTAL PROTEIN, SERUM 6.7 g/dL (6.0-8.3)
[2018-09-20 04:00] VITALS: BP 156/97
[2018-09-20 04:34] LABS: ERYTHROCYTE SEDIMENTATION RATE 120 MM/HR (0-20)
[2018-09-20] MEDS: METHYLPREDNISOLONE SOD SUCC 40MG/ML 1ML IVP SCH (05:50)
[2018-09-20] MEDS: ZOSYN 3.375GM+NS 50ML 50 ML IV SCH ×3 (05:50→20:36)
[2018-09-20] MEDS: IPRATROPIUM 0.5 MG/2.5 ML INH IH SCH ×4 (06:38→23:15)
--- NOTE | 2018-09-20 07:00 | NUR ---
RECEIVED REPORT FROM DESKTOP PUBLISHER RN.
[2018-09-20 07:24] VITALS: BP 155/103
[2018-09-20] MEDS: METOPROLOL TARTRATE 25 MG TAB PO SCH (09:03)
[2018-09-20] MEDS: ENOXAPARIN SODIUM 40 MG/0.4 ML SYRINGE SQ SCH (09:03)
[2018-09-20] MEDS: OSELTAMIVIR PHOSPHATE 75 MG CAP PO SCH ×2 (09:03→20:36)
[2018-09-20] MEDS: NEUTRA-PHOS PACKET 1 EACH PO SCH ×4 (09:09→21:57)
[2018-09-20] MEDS: CLINDAMYCIN 600 MG/D5% WATER 50 ML IV SCH ×3 (09:30→21:57)
--- NOTE | 2018-09-20 09:47 | NUR ---
MD ORDERS TO TRANSFER PATIENT TO 3RD FLOOR (MED/SURG). GAVE REPORT TO 3RD FLOOR RN.
[2018-09-20] MEDS: VANCOMYCIN 1.75 GM in SODIUM CHLORIDE 0.9% 250 ML IV SCH ×2 (10:07→22:46)
[2018-09-20] MEDS: PREDNISONE 20 MG TABLET PO SCH (10:07)
[2018-09-20 12:00] VITALS: BP 169/99
--- NOTE | 2018-09-20 14:46 | NUR ---
DC Plan Attempted to discuss dcp with patient. Patient currently in bed. Patient did not want to participate in dc plan discussion. Called [facility] ph: [phone]. Answered all questions. States will discuss with patient, tour, and then call CM back tomorrow with decision. Left Vendor List in patient's room with CM's phone # per Ronen Mills's request. CM to revisit. CD Addendum: 09/20/18 at 1451 by GIOVANY ONOFRE CM Amended: Links added.
[2018-09-20] MEDS ORDERED: PHARMACY COMMUNICATION MISC SCH (15:15)
[2018-09-20 16:00] VITALS: BP 166/93
--- NOTE | 2018-09-20 16:52 | NUR ---
cm note met with patient and with WESLEY murphy, and both in agreement for renee guevara, obtained consent, referral sent, spoke to samir for evaluation.
[2018-09-20] MEDS ORDERED: ALTEPLASE 2 MG/2 ML IVCATH ONE (17:00)
[2018-09-20] MEDS ORDERED: POTASSIUM PHOS 15 mMOL+NS250ML 250 ML IV SCH (19:15)
[2018-09-20 20:00] VITALS: BP 163/88
[2018-09-20] MEDS: METOPROLOL TARTRATE 50 MG TAB PO SCH (20:36)
[2018-09-21 00:51] VITALS: BP_SYST 150; BP_SYST 165; BP_DIAS 76; BP_DIAS 92
[2018-09-21 02:05] VITALS: BP 150/76
[2018-09-21] MEDS: CLINDAMYCIN 600 MG/D5% WATER 50 ML IV SCH ×3 (03:07→15:48)
[2018-09-21 04:24] VITALS: BP 151/81
[2018-09-21] MEDS: ZOSYN 3.375GM+NS 50ML 50 ML IV SCH ×2 (05:08→12:57)
[2018-09-21] MEDS: VANCOMYCIN 1.75 GM in SODIUM CHLORIDE 0.9% 250 ML IV SCH ×2 (05:16→15:02)
[2018-09-21 05:37] LABS: HEMATOCRIT 35.7 % (42-54); MEAN CORPUSCULAR HEMOGLOBIN 33.2 pg (27.0-33.0); MEAN CORPUSCULAR HGB CONC 34.3 g/dL (32.0-36.0); MEAN CORPUSCULAR VOLUME 96.8 fL (79-99); NUCLEATED RED BLOOD CELLS 0.1 % (0.0-0.19); PLATELET COUNT (AUTO) 257 K/uL (130-400); RED BLOOD CELL COUNT(AUTO) 3.69 MIL/uL (4.50-6.20); RED CELL DISTRIBUTION WIDTH 13.4 % (11.0-15.5); WHITE BLOOD COUNT (AUTO) 14.1 K/uL (4.8-10.8)
[2018-09-21 05:58] LABS: ALBUMIN 1.9 g/dL (3.5-5.0); BILIRUBIN,TOTAL 0.6 mg/dL (0.2-1.0); CREATININE 0.7 mg/dL (0.5-1.5); CRP QUANTITATIVE 35.5 mg/L (0.00-9.0); MAGNESIUM 2.3 mg/dL (1.80-2.40); PHOSPHORUS 2.4 mg/dL (2.5-4.9); POTASSIUM 3.6 mmol/L (3.5-5.1); TOTAL PROTEIN, SERUM 6.2 g/dL (6.0-8.3)
[2018-09-21] MEDS: IPRATROPIUM 0.5 MG/2.5 ML INH IH SCH ×2 (06:35→11:33)
[2018-09-21 06:47] LABS: ERYTHROCYTE SEDIMENTATION RATE 120 MM/HR (0-20)
[2018-09-21 07:00] VITALS: BP 154/90
--- NOTE | 2018-09-21 08:50 | NUR ---
RECEIVED CALL FROM OFFICER AT PORT OF ENTRY RE PT. COND. SISTER TRYING TO CROSS TO VISIT BUT NEEDS APPROVAL.
[2018-09-21] MEDS: METOPROLOL TARTRATE 50 MG TAB PO SCH (08:56)
[2018-09-21] MEDS: PREDNISONE 20 MG TABLET PO SCH (08:56)
[2018-09-21] MEDS: OSELTAMIVIR PHOSPHATE 75 MG CAP PO SCH (08:56)
[2018-09-21] MEDS: ENOXAPARIN SODIUM 40 MG/0.4 ML SYRINGE SQ SCH (08:57)
[2018-09-21 12:00] VITALS: BP 154/92
--- NOTE | 2018-09-21 15:00 | NUR ---
REPORT CALLED TO [facility], TALKED TO FARAZ MEHTA LVN. EMS NOTIFIED OF TRANSFER AND MD CERTIFICATION FORM FAXED TO THEM.
--- NOTE | 2018-09-21 16:40 | NUR ---
TRANSFERRED TO [facility] NOW VIA EMS.
== END 2018-09-21 16:40 | DRG 871 ==
LOC: EDH 16:16 → OBSVTOIN 16:17 → EDHIP 16:17 → 3DH 20:16 → 2BH 09-16 15:38 → 2AH 09-20 03:36 → 3BH 09-20 10:37
PROVIDERS: ADMIT Hospitalist; ATTEND Hospitalist
PROC: 5A09357 Assistance with Respiratory Ventilation, Less than 24 Consecutive Hours, Continuous Positive Airway Pressure (ICD-10-PCS; principal; 2018-09-16)
PROC: 5A09357 Assistance with Respiratory Ventilation, Less than 24 Consecutive Hours, Continuous Positive Airway Pressure (ICD-10-PCS; 2018-09-17)
DX: A41.9 Sepsis, unspecified organism (principal); J10.08 Influenza due to other identified influenza virus with other specified pneumonia; J18.0 Bronchopneumonia, unspecified organism; J96.90 Respiratory failure, unspecified, unspecified whether with hypoxia or hypercapnia; R65.21 Severe sepsis with septic shock; E44.0 Moderate protein-calorie malnutrition; E87.1 Hypo-osmolality and hyponatremia; I47.1 Supraventricular tachycardia; I50.30 Unspecified diastolic (congestive) heart failure; J44.0 Chronic obstructive pulmonary disease with (acute) lower respiratory infection; J44.1 Chronic obstructive pulmonary disease with (acute) exacerbation; L02.415 Cutaneous abscess of right lower limb; L03.116 Cellulitis of left lower limb; L03.115 Cellulitis of right lower limb; Z68.41 Body mass index [BMI] 40.0-44.9, adult; E66.01 Morbid (severe) obesity due to excess calories; E83.39 Other disorders of phosphorus metabolism; E83.42 Hypomagnesemia; E87.6 Hypokalemia; G47.33 Obstructive sleep apnea (adult) (pediatric); I11.0 Hypertensive heart disease with heart failure; I48.91 Unspecified atrial fibrillation; N28.9 Disorder of kidney and ureter, unspecified; E86.9 Volume depletion, unspecified; Z79.899 Other long term (current) drug therapy
CPT/HCPCS: 36415; 36600; 71045; 73701; 80048; 80053; 80202; 81001; 82550; 82803; 83036; 83605; 83735; 83874; 83880; 84100; 84443; 84484; 85025; 85027; 85610; 85651; 85730; 86140; 87040; 87088; 87804; 93005; 93306; 93971; 94640; 94660; 94664; A4218; C1751; C1894; G0378; J1650; J1940; J2270; J2370; J2405; J2543; J2920; J2997; J3370; J3475; J3480; J3490; J7030